=== PATIENT | male | born 1930 | race Caucasian/White ===

== ENCOUNTER 2017-09-25 01:54 | Inpatient (IN) | payer MEDICARE, BC, OTHER ==
[~2017-09-25] VITALS: Ht 180.3 cm; Wt 92.6 kg
[2017-09-25] MEDS ORDERED: NS 1000ML/KCL 20MEQ 1,000 ML IV ONE (11:34)
[2017-09-25] MEDS: DYNACIRC PO SCH (12:30)
[2017-09-25 12:33] LABS: BASOPHIL % 0.2 % (0.0-0.2); BILIRUBIN,URINE NEGATIVE (NEGATIVE); EOSINOPHIL # 0.1 10^3/uL (0.0-0.2); EOSINOPHIL % 1.8 % (0.0-5.0); HEMOGLOBIN 12.4 g/dL (13.9-16.3); LYMPHOCYTES # 0.8 10^3/uL (1.0-4.8); LYMPHOCYTES % 15.1 % (24.0-44.0); MEAN CELL HGB 32.9 pg (26-34); MEAN CELL HGB CONCENTRATION 33.5 g/dL (33-37); MEAN CORP VOLUME 98.1 fL (78-100); MEAN PLATELET VOLUME 9.7 fL (7.8-11.0); MONOCYTES # 0.8 10^3/uL (0.3-0.8); MONOCYTES % 14.9 % (5.0-12.0); NEUTROPHIL # 3.7 10^3/uL (1.8-7.7); NEUTROPHILS % 67.6 % (41.0-85.0); UROBILINOGEN,URINE NORMAL (NEGATIVE); WHITE BLOOD CELL 5.4 10^3/uL (4.5-11.0)
[2017-09-25 12:34] LABS: APPEARANCE,URINE CLEAR (CLEAR); UA COLOR STRAW (YELLOW)
--- NOTE | 2017-09-25 12:47 | PCM.EKG ---
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
[2017-09-25] MEDS: NS 1000ML 1,000 ML IV SCH ×2 (12:50→19:56)
[2017-09-25 13:01] VITALS: BP 150/82
[2017-09-25 13:03] LABS: CALCIUM 9.2 mg/dL (8.4-10.5); CARBON DIOXIDE 27.3 mmol/L (20.0-32)
--- NOTE | 2017-09-25 16:15 | DIREP ---
PROCEDURE:CHEST 1 VIEW COMPARISON:CR, CHEST 1 VIEW, 11/13/2010, 09:24 AM. INDICATIONS:SOB FINDINGS: LUNGS/PLEURA:Ill-defined opacity at the medial aspect of the right lung base is favored to likely reflect a prominent right pericardial fat pad. This is fairly similar to the previous study from 2010. No suspicious airspace consolidation, pleural effusion or pneumothorax is identified. VASCULATURE:Normal. Unremarkable pulmonary vasculature. CARDIAC:The heart is not enlarged. Stable left-sided cardiac pacing device. MEDIASTINUM:Mediastinal contours are within normal limits. BONES:Degenerative changes of the shoulders and spine. OTHER:Negative. CONCLUSION: 1. Essentially stable chest with apparent prominent right pericardial fat pad. No acute cardiopulmonary abnormality suspected. Dictated by: Kevin Caba M.D. On 09/25/2017 at 04:13 PM
[2017-09-25 17:38] VITALS: BP 160/88
--- NOTE | 2017-09-25 18:53 | DIREP ---
PROCEDURE:US KIDNEYS-BILAT COMPARISON:None. INDICATIONS:kidney injury TECHNIQUE:Ultrasound examination was performed of the kidneys and bladder. FINDINGS: RIGHT KIDNEY: The right kidney measures approximately 11.8 x 4.5 x 9.8 cm. There is apparent mild increased cortical echogenicity. The right renal cortex measures up to approximately 1.1 cm in thickness. There is a small cyst within the lower pole of the right kidney measuring up to approximately 2.2 cm. There is a larger cyst which directly abuts the lower pole of the right kidney and likely reflects an exophytic cyst. This is simple appearing and measures up to approximately 8.7 x 4.7 x 8.4 cm. LEFT KIDNEY: The left kidney measures approximately 11.8 x 5.3 x 6.1 cm. There is apparent mild increased cortical echogenicity. The left renal cortex measures up to approximately 1.4 cm. No hydronephrosis or suspicious contour deforming lesion is identified. There is an apparent small cyst within the mid to lower pole left kidney measuring up to approximately 2.1 cm. BLADDER:Grossly unremarkable. Bilateral ureteral jets are appreciated. CONCLUSION: 1. Bilateral renal cysts. No hydronephrosis or suspicious renal contour deforming lesion is identified. Increased cortical echogenicity may reflect underlying chronic medical renal disease. 2. Bilateral ureteral jets are visualized. Dictated by: RAFA Physician on 09/25/2017 at 04:18 PM
[2017-09-25 19:34] VITALS: BP 146/76
[2017-09-25] MEDS: CRESTOR PO SCH (20:03)
--- NOTE | 2017-09-25 20:03 | NUR ---
pt refused cholesterol medication, because he takes it in the mornings, and had already taken it.
[2017-09-26] VITALS (7 sets, daily range): BP systolic 144–181; BP diastolic 71–84
[2017-09-26] MEDS: NS 1000ML 1,000 ML IV SCH ×3 (03:28→20:45)
[2017-09-26 05:13] LABS: CALCIUM 8.3 mg/dL (8.4-10.5); CARBON DIOXIDE 24.6 mmol/L (20.0-32)
--- NOTE | 2017-09-26 06:55 | NUR ---
REPORT REPORT RECEIVED FROM PREVIOUS SHIFT AND ASSUMED CARE OF PT
[2017-09-26] MEDS: BYSTOLIC PO SCH (08:54)
[2017-09-26] MEDS: ASPIRIN EC PO SCH (08:54)
[2017-09-26] MEDS ORDERED: DEMADEX PO SCH (09:00)
[2017-09-26] MEDS ORDERED: HYDROCHLOROTHIAZIDE PO SCH (09:00)
[2017-09-26] MEDS ORDERED: COZAAR PO SCH (09:00)
[2017-09-26] MEDS ORDERED: KLOR-CON 10 PO SCH (09:00)
--- NOTE | 2017-09-26 10:22 | NUR ---
DR. ELEAZAR BUSH HERE TO SEE PT AT THIS TIME
--- NOTE | 2017-09-26 10:40 | NUR ---
DISCHARGE PLANNING CM VISITED WITH PATIENT AND REGARDING DISCHARGE PLAN AND NEEDS. PATIENT LIVES AT HOME WITH HIS . HE IS INDEPENDENT WITH ALL ADL'S AND REQUIRES NO DME AT THIS TIME ALTHOUGH HE DOES HAVE A WALKER AT HOME IF HE EVER NEEDS IT. HE IS NOT ON ANY OXYGEN AT HOME AND DENIES NEED FOR HOME HEALTH. DISCHARGE GOAL IS TO DISCHARGE HOME WITH HIS AND CONTINUE ROUTINE SELF CARE. CM DEPT WILL CONTINUE TO MONITOR DISCHARGE NEEDS.
[2017-09-26] MEDS: DYNACIRC PO SCH (12:30)
--- NOTE | 2017-09-26 14:19 | PCM.EKG ---
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
--- NOTE | 2017-09-26 18:33 | NUR ---
REPORT REPORT RECEIVED FROM JANI BOO ASSUMED CARE OF PT
[2017-09-26] MEDS: CRESTOR PO SCH (20:45)
--- NOTE | 2017-09-27 02:27 | NUR ---
STATUS PT LYING IN BED WITH EYES CLOSED, RESP EVEN AND NON LABORED. NO S/S OF DISTRESS NOTED. CALL LIGHT WITHIN REACH. BED LOCKED AND LOW POSITION. SIDE RAILS UP X2. WILL CONT TO MONITOR.
[2017-09-27 05:13] VITALS: BP 156/72
[2017-09-27] MEDS: NS 1000ML 1,000 ML IV SCH (05:33)
[2017-09-27 06:07] LABS: CALCIUM 8.4 mg/dL (8.4-10.5)
--- NOTE | 2017-09-27 06:45 | NUR ---
REPORT RECEIVED REPORT, ASSUMED CARE OF PT
[2017-09-27 07:19] VITALS: BP 160/87
[2017-09-27] MEDS: BYSTOLIC PO SCH (08:24)
[2017-09-27] MEDS: ASPIRIN EC PO SCH (08:24)
[2017-09-27] MEDS ORDERED: ASPI-655 PO (10:03)
[2017-09-27] MEDS ORDERED: NEBI5TAB2 PO (10:03)
[2017-09-27] MEDS ORDERED: ROSU10TA PO (10:03)
[2017-09-27] MEDS ORDERED: ISRA2.5C PO ×2 (10:03→10:19)
[2017-09-27] MEDS ORDERED: TORS20TA2 PO (10:19)
[2017-09-27] MEDS ORDERED: ROSU20TA PO (10:19)
[2017-09-27] MEDS ORDERED: ASPI-484 PO (10:19)
[2017-09-27] MEDS ORDERED: LOSA100T6 PO (10:19)
[2017-09-27] MEDS ORDERED: NEBI10TA3 PO (10:19)
[2017-09-27] MEDS ORDERED: POTA10CA PO (10:19)
[2017-09-27] MEDS ORDERED: HYDR12.53 PO (10:19)
[2017-09-27 10:36] VITALS: BP 160/87
--- NOTE | 2017-09-27 11:13 | NUR ---
DISCHARGE EDUCATED PT AND FAMILY MEMBER ON DISEASE PROCESS, NEW MEDICATIONS, FOLLOW UP APPOINTMENTS, DIET, AND MEDICATIONS TO STOP. PT VERBALIZED UNDERSTANDING. PT AMBULATED OFF UNIT ACCOMPANIED BY FAMILY MEMBER. NO S/S OF DISTRESS NOTED.
--- NOTE | 2017-09-27 19:56 | PNH ---
DATE: 09/26/2017 SUBJECTIVE: The patient is 87 years old. The patient is doing much better. His urine output has improved. OBJECTIVE: VITAL SIGNS: Stable, 97 temperature, pulse 60, respiration 18, 170/80 blood pressure . Intake, output shows he had a positive balance. He has been drinking a lot of fluid. He does not have a Gong catheter in. LABORATORY DATA: The creatinine was over 2, is now 1.69 with a BUN of 43. Uric acid is 8, it was 8.9 yesterday. Urine was unremarkable. Kidney size is normal. IMPRESSION: Acute kidney injury, hypertension, hypertensive heart disease, on multiple diuretics. PLAN: At this time, repeat renal profile in the morning and then decide further therapy. Tova Weems MD DR: CASTILLO/berta JOB# [id number]
--- NOTE | 2017-09-29 00:26 | DSH ---
DATE OF DISCHARGE: 09/27/2017 FINAL DIAGNOSES: Acute kidney injury, hypertension, hypertensive heart disease, chronic diastolic heart failure. Please refer to my history and physical to the point of my impression. HOSPITAL COURSE: The patient is a 87-year-old white male who has a known history of hypertension, hypertensive heart disease with chronic diastolic heart failure and has been on Lasix and hydrochlorothiazide and he for the first time noticed to have significant changes in renal function with a creatinine over 2, BUN was over 50 and creatinine was about 2.3 in the office and urine was unremarkable, cyst in the kidney, normal size kidney and this was felt to be related to prerenal azotemia, diuretics and he was admitted and started on IV fluids and on 09/27/2017 BUN was 27, creatinine 1.34 and a potassium was 3.6 and uric acid was 8.9 and came down to 8, very likely hydration should help and he was sent home on limited number of medicine, aspirin 81 mg once a day, isradipine 2.5 mg twice a day and Bystolic 20 mg once a day, Crestor 10 mg once a day, aspirin 81 mg once a day and losartan 50 mg daily and potassium 10 mEq once a day. I did stop his hydrochlorothiazide and torsemide and he will come back in the office on next Friday, which is 10/01/2017 for reconciliation of medications and/or recheck of his renal profile. Laxmichand MD Dank DR: CASTILLO/berta JOB# [id number]
== END 2017-09-27 11:15 | disposition home or self-care (01) | DRG 683 ==
LOC: MS 10:57
PROVIDERS: ADMIT Specialist; ATTEND Specialist
DX: N17.9 Acute kidney failure, unspecified (principal); I50.32 Chronic diastolic (congestive) heart failure; I13.0 Hypertensive heart and chronic kidney disease with heart failure and stage 1 through stage 4 chronic kidney disease, or unspecified chronic kidney disease; N28.1 Cyst of kidney, acquired; N18.3 Chronic kidney disease, stage 3 (moderate); E78.5 Hyperlipidemia, unspecified; Z79.82 Long term (current) use of aspirin; Z95.0 Presence of cardiac pacemaker; Z79.899 Other long term (current) drug therapy; Z82.49 Family history of ischemic heart disease and other diseases of the circulatory system; Z80.0 Family history of malignant neoplasm of digestive organs; Z90.49 Acquired absence of other specified parts of digestive tract
CPT/HCPCS: 36415; 71045; 76770; 80053; 81002; 83880; 84550; 85025; 87086; 93005; J7030

== ENCOUNTER → 2018-03-09 | Outpatient (CLI) | payer MEDICARE, BC, OTHER ==
[~2018-03-09] MED LIST: ASPI-484 PO; ASPI-655 PO; HYDR12.53 PO; ISRA2.5C PO; LOSA100T7 PO; NEBI10TA3 PO; NEBI5TAB2 PO; POTA10CA PO; ROSU10TA PO; ROSU20TA PO; TORS20TA2 PO
--- NOTE | 2018-03-09 15:34 | DIREP ---
PROCEDURE:US DUPLEX EXTREM VEINS UNILATER/LIMITED-RT COMPARISON:None. INDICATIONS:EDEMA RIGHT LEG, DVT, HTN, HHD TECHNIQUE:The right lower extremity was evaluated utilizing islas scale images with segmental compression, color Doppler, and spectral Doppler with respiratory variation and augmentation. FINDINGS: Common femoral vein:Patent Superficial femoral vein:Patent Popliteal vein:Patent Posterior tibial vein:Patent Peroneal vein:Patent Saphenofemoral junction:Patent Waveforms: Within normal limits. CONCLUSION:No evidence of deep venous thrombosis of the right lower extremity. Dictated by: Eusebio Blanchard M.D. on 03/09/2018 at 03:33 PM
== END | disposition home or self-care (01) ==
LOC: RAD 16:10
PROVIDERS: ATTEND Specialist
DX: R60.0 Localized edema (principal); I13.0 Hypertensive heart and chronic kidney disease with heart failure and stage 1 through stage 4 chronic kidney disease, or unspecified chronic kidney disease; N18.3 Chronic kidney disease, stage 3 (moderate); I50.32 Chronic diastolic (congestive) heart failure; E78.5 Hyperlipidemia, unspecified
CPT/HCPCS: 93971

== ENCOUNTER → 2018-10-05 | Outpatient (CLI) | payer MEDICARE, BC, OTHER ==
[~2018-10-05] MED LIST changes: +LOSA100T14 PO; -LOSA100T7 PO; -ROSU10TA PO; +ROSU10TA2 PO; -ROSU20TA PO; +ROSU20TA2 PO
[2018-10-05 16:25] LABS: HEMOGLOBIN 9.8 g/dL (13.9-16.3); MEAN CELL HGB 28.4 pg (26-34); MEAN CELL HGB CONCENTRATION 32.5 g/dL (33-37); MEAN CORP VOLUME 87.5 fL (78-100); MEAN PLATELET VOLUME 9.8 fL (7.8-11.0); WHITE BLOOD CELL 6.7 10^3/uL (4.5-11.0)
[2018-10-05 16:36] LABS: CALCIUM 8.9 mg/dL (8.4-10.5); CARBON DIOXIDE 25.6 mmol/L (20.0-32)
== END | disposition home or self-care (01) ==
LOC: LAB 15:46
PROVIDERS: ATTEND Specialist
DX: M79.81 Nontraumatic hematoma of soft tissue (principal); R60.0 Localized edema
CPT/HCPCS: 36415; 80053; 82550; 85027; 85379; 85651

== ENCOUNTER → 2018-10-06 | Outpatient (CLI) | payer MEDICARE, BC ==
--- NOTE | 2018-10-06 17:08 | DIREP ---
PROCEDURE:US DUPLEX EXTREM VEINS UNILATER/LIMITED-RT COMPARISON:[facility], DUPLEX EXTREM VEINS UNILATER/LIMITED-RT, 03/09/2018, 03:17 PM. INDICATIONS:DVT RIGHT LEG TECHNIQUE:The right lower extremity was evaluated utilizing islas scale images with segmental compression, color Doppler, and spectral Doppler with respiratory variation and augmentation. FINDINGS: Common femoral vein:Patent Superficial femoral vein:Patent Popliteal vein:Patent Posterior tibial vein:Patent Peroneal vein:Patent Greater saphenous vein:Patent Waveforms: Within normal limits. Other: A 2.0 x 3.1 x 1.9 cm collection of fluid is identified in the right distal thigh. Mild soft tissue edema seen at the level of the calf. CONCLUSION:No evidence of DVT involving the right lower extremity. Small fluid collection seen in the distal thigh that may be related the injury or possible hematoma. Soft tissue edema seen at the level of the calf. Dictated by: RAFA Physician on 10/06/2018 at 04:33 PM Read in [place] erickson almendarez
--- NOTE | 2018-10-07 08:15 | DIREP ---
PROCEDURE:CT LOWER EXTREMITY-RT W/O COMPARISON:None. INDICATIONS:LARGE HEMATOMA, RIGHT THIGH INNER ASPECT TECHNIQUE:Axial sections through the right thigh were performed with sagittal and coronal reconstructions from source images. No contrast was administered. FINDINGS: BONES:The imaged osseous structures appear intact. JOINTS:Minimal degenerative changes of the right knee. Mild superior patellar enthesopathy. SOFT TISSUES:No sizable suprapatellar joint effusion. Scattered atherosclerotic calcifications. Mild diffuse subcutaneous edema about the imaged right thigh. There is a more confluent somewhat lobular shaped density within the subcutaneous fat along the medial aspect of the imaged distal right thigh. This measures approximately 3.5 x 4.4 x 2.0 cm (cc, AP, TV) and would be consistent with the reported hematoma. CONCLUSION: 1. No acute osseous abnormality. 2. Confluent density within the superficial subcutaneous fat along the medial aspect of the distal right thigh, consistent with the reported hematoma. There is associated mild subcutaneous edema throughout the imaged right thigh. Please note that the presumed hematoma is likely clinically palpable given the superficial location. Suggest continued clinical follow-up to ensure resolution. Dictated by: Kevin Caba M.D. On 10/07/2018 at 08:09 AM
== END | disposition home or self-care (01) ==
LOC: RAD 15:56
PROVIDERS: ATTEND Specialist
DX: M17.11 Unilateral primary osteoarthritis, right knee (principal); M79.9 Soft tissue disorder, unspecified; E78.5 Hyperlipidemia, unspecified; Z79.899 Other long term (current) drug therapy
CPT/HCPCS: 73700; 93971

== ENCOUNTER → 2019-03-18 | Outpatient (CLI) | payer MEDICARE, BC ==
--- NOTE | 2019-03-18 16:02 | DIREP ---
PROCEDURE:CHEST 2 VIEWS COMPARISON:[facility], CR, XRAY CHEST SINGLE VW, 09/25/2017, 01:59 PM. INDICATIONS:CH, COUGH FINDINGS: LUNGS/PLEURA:No significant pulmonary parenchymal abnormalities. No effusions. VASCULATURE:Normal. Unremarkable pulmonary vasculature. CARDIAC: Left subclavian cardiac pacing device. MEDIASTINUM:Normal. No visible mass or adenopathy. BONES:Normal. No fracture or visible bony lesion. OTHER:Negative. CONCLUSION: 1. No acute cardiopulmonary abnormality. Dictated by: Abdias Alvarado Jr. on 03/18/2019 at 04:00 PM
== END | disposition home or self-care (01) ==
LOC: RAD 15:06
PROVIDERS: ATTEND Specialist
DX: R05 Cough (principal)
CPT/HCPCS: 71046

== ENCOUNTER → 2019-03-23 | Outpatient (CLI) | payer MEDICARE, BC | END | disposition home or self-care (01) | LOC: LAB 13:00 | PROVIDERS: ATTEND Specialist | DX: D50.9 Iron deficiency anemia, unspecified (principal) | CPT/HCPCS: 36415; 82728; 85045 ==

== ENCOUNTER → 2019-06-03 | Outpatient (CLI) | payer MEDICARE, BC ==
--- NOTE | 2019-06-03 18:01 | DIREP ---
PROCEDURE:CT HEAD OR BRAIN W/ + W/O CONTRAST COMPARISON:None. INDICATIONS:TREMORS, TIA TECHNIQUE:CT images were created with and without intravenous contrast. FINDINGS: VENTRICLES:The ventricles are normal in size and configuration. CEREBRUM:Mild generalized atrophy. No focal loss of islas-white matter junction. No abnormal region of enhancement. No intracranial hemorrhage. CEREBELLUM:Mild volume loss. BRAINSTEM:Negative. BASAL CISTERNS:Negative. HEMORRHAGE:No MASS LESION:No ACUTE INFARCT:No SKULL:Normal. SINUSES:Normal. OTHER:None CONCLUSION:Mild atrophy. No evidence of acute abnormality. No evidence of hemorrhage. Dictated by: Curry Manjarrez MD on 06/03/2019 at 05:57 PM
--- NOTE | 2019-06-04 04:41 | DIREP ---
PROCEDURE:US DOPPLER CAROTID BILATERAL COMPARISON:[facility], US, US DOPPLER CAROTID BILATERAL, 12/19/2016, 02:41 PM. INDICATIONS:TIA, TREMORS, HTN TECHNIQUE:Duplex Doppler ultrasound utilizing color flow, villegas scale, and spectral Doppler analysis techniques were performed to evaluate the cervical carotid arteries and vertebral flow. FINDINGS: PEAK SYSTOLIC FLOW VELOCITIES (cm/sec) RIGHT CCA:38 cm/s RIGHT ICA (Proximal):53 cm/s RIGHT ICA (Mid):36 cm/s RIGHT ICA (Distal):39 cm/s RIGHT ECA:45 cm/s RIGHT ICA/CCA:1.4 LEFT CCA:52 cm/s LEFT ICA (Proximal):43 cm/s LEFT ICA (Mid):52 cm/s LEFT ICA (Distal):52 cm/s LEFT ECA:57 cm/s LEFT ICA/CCA:1.0 RIGHT VERTEBRAL:Antegrade flow LEFT VERTEBRAL:Antegrade flow IMAGES:Intimal thickening and/or plaque formation. CONCLUSION: 1. The degree of stenosis in the right internal carotid artery is < 50%. 2. The degree of stenosis in the left internal carotid artery is < 50%. GUIDELINES: Consensus Panel Villegas-scale and Doppler US Criteria for Diagnosis of ICA Stenosis Radiology, Mar 2003; Davie et al. 229 (2): 340- 346 Degree of Stenosis (%) NormalWhen there is < 125 cm/s and no plaque or intimal thickening is visible < 50When there is < 125 cm/s and plaque or intimal thickening is visible 50 - 69When there is 125 - 230 cm/s and plaque is visible 70 but less than near occlusionWhen there is > 230 cm/s and visible plaque and luminal narrowing are seen Near occlusionWhen there is marked narrowed lumen at color Doppler US Total occlusionWhen there is no detectable patent lumen at grayscale US and no flow at spectral, power and color Doppler US COMMENT: Common carotid artery and external carotid artery stenosis * No well established Doppler criteria for grading stenosis. * Measuring stenosis on color coded images may underestimate the degree of stenosis Diagnostic pitfalls * Trickle flow near occlusion may be undetected * ICA stenosis may be underestimated due to poor cardiac function or tandem stenosis * Contralateral ICA stenosis may be overestimated due to crossover collateral flow * Moderate carotid stenosis may be underestimated due to normalization flow at bulb Dictated by: Jacob Mar M.D. on 06/04/2019 at 04:32 AM
== END | disposition home or self-care (01) ==
LOC: CT 15:07
PROVIDERS: ATTEND Specialist
DX: G31.89 Other specified degenerative diseases of nervous system (principal); G45.9 Transient cerebral ischemic attack, unspecified; I10 Essential (primary) hypertension; R25.1 Tremor, unspecified
CPT/HCPCS: 36415; 70470; 82565; 93880; Q9967

== ENCOUNTER 2019-11-01 15:50 | Emergency (ER) | payer MEDICARE, BC ==
--- NOTE | 2019-11-01 16:16 | ER.PDOC ---
General Chief Complaint: Requesting Medical Care Stated Complaint: AMS Time seen by MD: 16:06 Source: patient, EMS History of Present Illness Initial Comments Pt's called EMS for pt being unresponsive, EMS found pt awake but not talking/responding initially. By the time they arrived, pt was awake and alert. No reports of shaking/seizure activity. Now denies symptoms. Usually: orientedx3 Decreased Ability to Stand: weak (better now) Prior symptoms/Treatment: No Similar symptoms previous, No Recenly Seen Allergies: Coded Allergies: No Known Allergies (Unverified , 09/25/17) Home Meds Active Scripts Aspirin (ASPIRIN EC) 81 Mg Tablet.dr, 81 MG PO DAILY for 30 Days Prov:CRISS BUSH MD 09/27/17 Isradipine (ISRADIPINE) 2.5 Mg Capsule, 2.5 MG PO DAILY24 for 30 Days, CAPSULE Prov:CRISS BUSH MD 09/27/17 Reported Medications Calcium Polycarbophil (FIBERCON) 625 Mg Tablet, 625 MG PO DAILY24, TAB 11/01/19 Memantine Hcl (NAMENDA) 10 Mg Tablet, 10 MG PO DAILY24, TAB 11/01/19 Carbidopa/Levodopa (CARBIDOPA-LEVODOPA 25-100 TAB) 1 Each Tablet, 1 TAB PO TID for 30 Days, #90 TAB 0 Refills 11/01/19 Aspirin (ASPIR 81) 81 Mg Tablet.dr, 1 TAB PO DAILY, #30 TAB 5 Refills 09/27/17 Nebivolol Hcl (BYSTOLIC) 10 Mg Tablet, 2 TAB PO DAILY, #90 TAB 1 Refill 09/27/17 Isradipine (ISRADIPINE) 2.5 Mg Capsule, 2.5 MG PO DAILY24, CAPSULE 09/27/17 Rosuvastatin 20MG (CRESTOR 20MG) 20 Mg Tablet, 1 TAB PO EVERY OTHER DAY, #30 TAB 5 Refills 09/27/17 Losartan Potassium (LOSARTAN POTASSIUM) 100 Mg Tablet, 1 TAB PO DAILY, #30 TAB 5 Refills 09/27/17 Potassium Chloride (POTASSIUM CHLORIDE) 10 Meq Capsule.er, 1 CAP PO DAILY, #30 CAP 5 Refills 09/27/17 Discontinued Scripts Rosuvastatin 10MG (CRESTOR 10MG) 10 Mg Tablet, 10 MG PO HS for 30 Days, TABLET Prov:CRISS BUSH MD 09/27/17 Nebivolol Hcl (BYSTOLIC) 5 Mg Tablet, 20 MG PO DAILY for 30 Days, TABLET Prov:CRISS BUSH MD 09/27/17 Past Medical History Medical History: other (Parkinson's) Family History Significant Family History: no pertinent family hx Review of Systems Constitutional: denies chills, denies fever Eyes: no symptoms reported Ears, Nose, Mouth, Throat: no symptoms reported Respiratory: denies cough, denies shortness of breath Cardiovascular: see HPI; denies chest pain, denies edema, denies palpitations Gastrointestinal: no symptoms reported; denies abdominal pain, denies diarrhea, denies nausea, denies vomiting Genitourinary: no symptoms reported Musculoskeletal: no symptoms reported Psychiatric/Neurological: see HPI; denies headache Endocrine: no symptoms reported All Other Systems: Reviewed and Negative Physical Exam General Appearance: alert, no distress HEENT: no apparent trauma, EOM's intact, no nystagmus Neuro/Psych: oriented x3, other (slow speech) Cranial Nerves: nml as tested Peripheral Exam: other (no gross motor deficit) Neck: supple, non-tender Respiratory: no resp distress, breath sounds nml CVS: reg rate & rhythm, heart sounds nml Abdomen: non-tender, no organomegaly Skin: color nml, no rash Extremities: nml ROM, pedal edema (1+ b/l) Results/Orders Results/Orders Orders - SHERI HINKLE DO Ct Head Wo Contrast (11/01/19 15:52) Cbc With Auto Diff (11/01/19 15:52) Comprehensive Metabolic Panel (11/01/19 15:52) Creatine Kinase (11/01/19 15:52) Creatine Kinase Mb (11/01/19 15:52) PT (11/01/19 15:52) Partial Thromboplastin Time. (11/01/19 15:52) Xr Chest 1v (11/01/19 15:52) Urinalysis (11/01/19 15:52) Ekg-Routine (11/01/19 15:52) Troponin I (11/01/19 15:52) Lactic Acid(Ml) (11/01/19 15:52) Type And Screen (11/01/19 20:00) Vital Signs Date Time Temp Pulse Resp B/P (MAP) Pulse Ox O2 Delivery O2 Flow Rate FiO2 6/15/20 20:29 60 18 99 Room Air 11/01/19 19:30 99.0 60 17 99 Room Air 11/01/19 18:30 99.0 60 17 99 Room Air 11/01/19 17:45 94.4 70 17 99 11/01/19 17:45 99.0 71 17 Laboratory Tests Test 11/01/19 16:08 11/01/19 18:15 11/01/19 18:47 11/01/19 19:30 White Blood Count 6.9 10^3/uL (4.5-11.0) Red Blood Count 2.10 10^6/uL (4.50-5.90) L Hemoglobin 6.6 g/dL (13.9-16.3) L Hematocrit 21.2 % (37.0-53.0) L Mean Corpuscular Volume 101.0 fL (78-100) H Mean Corpuscular Hemoglobin 31.4 pg (26-34) Mean Corpuscular Hemoglobin Concent 31.1 g/dL (33-36.5) L Red Cell Distribution Width 21.4 % (11.5-14.5) H Platelet Count 126 10^3/uL (150-400) L Mean Platelet Volume 11.8 fL (7.8-11.0) H Neutrophils (%) (Auto) 82.0 % (41.0-85.0) Lymphocytes (%) (Auto) 7.8 % (24.0-44.0) L Monocytes (%) (Auto) 9.4 % (5.0-12.0) Neutrophils # (Auto) 5.7 10^3/uL (1.8-7.7) Lymphocytes # (Auto) 0.54 10^3/uL1 (1.0-4.8) L Monocytes # (Auto) 0.7 10^3/uL (0.3-0.8) Absolute Immature Granulocyte (auto 0.01 10^3 u/L (0-2) Absolute Eosinophils (auto) 0.0 10^3/uL (0.0-0.2) Immature Granulocytes % 0.10 % (0.00-0.50) Eosinophils % 0.4 % (0.0-5.0) Basophils % 0.3 % (0.0-0.2) H Basophils # 0.0 10^3/uL (0.0-0.1) Prothrombin Time 17.1 SEC (9.3-11.3) H Prothrombin Time INR (Non-Therap) 1.7 Activated Partial Thromboplast Time 45.9 SEC (24.67-30.72) Sodium Level 142 mmol/L (132-145) Potassium Level 5.5 mmol/L (3.6-5.2) H Chloride Level 108.0 mmol/L (96-109) Carbon Dioxide Level 23.9 mmol/L (20.0-32) Anion Gap 15.6 Blood Urea Nitrogen 56 mg/dL (7-18) H Creatinine 1.71 mg/dL (0.59-1.40) H Estimated GFR () 45.8 (>/=60) Est GFR (CKD-EPI)(Non-Afr Surinamese) 37.9 (>/=60) BUN/Creatinine Ratio 32.0 Glucose Level 94 mg/dL (70-110) Lactic Acid Level 2.6 mmol/L (0.5-1.9) *H Calcium Level 8.5 mg/dL (8.4-10.5) Total Bilirubin 0.3 mg/dL (0.2-1.0) Aspartate Amino Transferase (AST) 21 U/L (0-35) Alanine Aminotransferase (ALT) 22 U/L (12-78) Alkaline Phosphatase 127 U/L (50-136) Total Creatine Kinase 16 U/L (39-308) L Creatine Kinase MB 2.1 ng/mL (0.5-3.6) Troponin I < 0.02 ng/mL (0.00-0.05) Total Protein 6.8 g/dL (6.4-8.2) Albumin 3.0 g/dL (3.4-5.0) L Globulin 3.8 POC Stool Occult Blood POSITIVE (NEGATIVE) Lactic Acid Followup at 2 Hours 0.9 mmol/L (0.5-1.9) Urine Collection Type VOID Urine Color YELLOW (YELLOW) Urine Appearance CLEAR (CLEAR) Urine Bilirubin NEGATIVE MG/DL (NEGATIVE) Urine Ketones NEGATIVE (NEGATIVE) Urine Specific [place] 1.015 (1.005-1.035) Urine pH 5.0 (5.0-6.0) Urine Protein NEGATIVE (NEGATIVE) Urine Urobilinogen NEGATIVE (NEGATIVE) Urine Nitrate NEGATIVE (NEGATAIVE) Urine Leukocyte Esterase NEGATIVE (NEGATIVE) Urine Blood NEGATIVE (NEGATIVE) Urine Glucose NORMAL (NEGATIVE) Progress Progress I spoke with Hospitalist, reviewed findings and history. Due to anemia and Gi bleed being on Xarelto, she asked for pt to be transferred to [place] where GI is present. I asked family and they requested [facility] for transfer. Spoke with [facility], they accepted transfer, Dr. Mccullough accepting. Pt will need pacer interrogation and PRBC's if not able to be done prior to transfer. Departure Time of Disposition: 19:25 Disposition: 70 DISC/XFER TO [facility] Impression: Primary Impression: GI bleed Additional Impressions: Anemia Syncope Condition: Stable (guarded) Referrals: CRISS BUSH MD (PCP) PRIMARY CARE PROVIDER Duration or Time Spent with Pa: 45 Problem Qualifiers Primary Impression: GI bleed GI bleed type/associated pathology: unspecified gastrointestinal hemorrhage type Qualified Codes: K92.2 - Gastrointestinal hemorrhage, unspecified Additional Impressions: Anemia Anemia type: unspecified type Qualified Codes: D64.9 - Anemia, unspecified Syncope Syncope type: unspecified Qualified Codes: R55 - Syncope and collapse SHERI HINKLE DO Nov 01, 2019 16:16
--- NOTE | 2019-11-01 16:19 | PCM.EKG ---
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
[2019-11-01 16:24] LABS: BASOPHIL % 0.3 % (0.0-0.2); EOSINOPHIL % 0.4 % (0.0-5.0); LYMPHOCYTES # 0.54 10^3/uL1 (1.0-4.8); LYMPHOCYTES % 7.8 % (24.0-44.0); MEAN CORP HGB 31.4 pg (26-34); MONOCYTES # 0.7 10^3/uL (0.3-0.8); MONOCYTES % 9.4 % (5.0-12.0); NEUTROPHIL # 5.7 10^3/uL (1.8-7.7); RED CELL DISTRIBUTION WIDTH 21.4 % (11.5-14.5)
--- NOTE | 2019-11-01 16:36 | DIREP ---
PROCEDURE:CHEST 1 VIEW COMPARISON:[facility], CR, XRAY CHEST 2 VWS, 03/18/2019, 03:30 PM. INDICATIONS:confusion FINDINGS: LUNGS/PLEURA:No significant pulmonary parenchymal abnormalities. No effusions. VASCULATURE:Normal. Unremarkable pulmonary vasculature. CARDIAC:A left-sided pacemaker is again seen with the heart size normal. MEDIASTINUM:Normal. No visible mass or adenopathy. BONES:Degenerative changes are seen in the right shoulder and both acromioclavicular joints. OTHER:Negative. CONCLUSION:Left-sided pacemaker without acute cardiopulmonary disease. Dictated by: Franky Casas M.D. on 11/01/2019 at 04:34 PM
[2019-11-01 16:51] LABS: ALANINE AMINOTRANSFERASE(ML) 22 U/L (12-78); ALKALINE PHOSPHATASE 127 U/L (50-136); ASPARTATE AMINO TRANSFERASE 21 U/L (0-35); CALCIUM 8.5 mg/dL (8.4-10.5); CARBON DIOXIDE 23.9 mmol/L (20.0-32); GLUCOSE 94 mg/dL (70-110)
--- NOTE | 2019-11-01 16:55 | DIREP ---
PROCEDURE:CT HEAD OR BRAIN W/O CONTRAST COMPARISON:[facility], CT, CT HEAD BRAIN W&W/O, 06/03/2019, 04:12 PM. INDICATIONS:altered level of awareness TECHNIQUE:CT images were created without intravenous contrast. FINDINGS: VENTRICLES:The ventricles are normal in size and configuration for patient's age. 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 CEREBELLUM:Negative. BRAINSTEM:Negative. BASAL CISTERNS:Negative. HEMORRHAGE:No MASS LESION:No ACUTE INFARCT:No SKULL:Normal. SINUSES:Normal. 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 No hemorrhage or acute infarct is seen or significant interval change from prior study. Dictated by: Franky Casas M.D. on 11/01/2019 at 04:52 PM
--- NOTE | 2019-11-01 17:25 | NUR ---
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
[2019-11-01 17:45] VITALS: BP_SYST 101; BP_SYST 132; BP_DIAS 54; BP_DIAS 77
[2019-11-01 18:30] VITALS: BP 115/84
--- NOTE | 2019-11-01 19:18 | NUR ---
ALIE SHARPE FROM [employer] CALLED FOR UPDATE ON PT. PT BEING TRANSFERRED TO [facility].
[2019-11-01 19:30] VITALS: BP 147/74
[2019-11-01 19:48] LABS: APPEARANCE,URINE CLEAR (CLEAR); BILIRUBIN,URINE NEGATIVE (NEGATIVE); UA COLOR YELLOW (YELLOW); UROBILINOGEN,URINE NEGATIVE (NEGATIVE)
[2019-11-01] MEDS ORDERED: CARB1TAB22 PO (20:11)
[2019-11-01] MEDS ORDERED: MEMA10TA PO (20:12)
[2019-11-01] MEDS ORDERED: CALC625T PO (20:16)
[2019-11-01 20:29] VITALS: BP 147/74
--- NOTE | 2019-11-01 20:50 | NUR ---
[facility] CALLED FOR TRANSFER AT THIS TIME.
--- NOTE | 2019-11-01 21:22 | NUR ---
EMS HERE TO TAKE PT TO [facility] FOR TRANSFER. REPORT GIVEN TO BASHIR. RELINQUISH CARE OF PT AT THIS TIME.
--- NOTE | 2019-11-01 21:30 | NUR ---
REPORT CALLED AT THIS TIME. UNABLE TO REACH ER NURSE. WILL CALL BACK.
--- NOTE | 2019-11-01 21:36 | NUR ---
REPORT CALLED AND GIVEN TO HEATHER DUNLAP RN AT THIS TIME.
== END 2019-11-01 21:22 | disposition other institution (70) ==
LOC: EDBD 15:50 → ER 15:50
DX: K92.2 Gastrointestinal hemorrhage, unspecified (principal); D64.9 Anemia, unspecified; Z79.82 Long term (current) use of aspirin; Z79.899 Other long term (current) drug therapy
CPT/HCPCS: 36415; 70450; 71045; 80053; 81002; 82272; 82550; 82553; 83605; 84484; 85025; 85610; 85730; 86900; 93005; 99285

== ENCOUNTER → 2019-12-07 | Outpatient (CLI) | payer MEDICARE, BC ==
[~2019-12-07] MED LIST changes: -ASPI-484 PO; +ASPI-485 PO; +CALC625T PO; +CARB1TAB22 PO; +MEMA10TA PO
[2019-12-07 11:33] LABS: BASOPHIL % 0.2 % (0.0-0.2); EOSINOPHIL # 0.1 10^3/uL (0.0-0.2); EOSINOPHIL % 2.5 % (0.0-5.0); LYMPHOCYTES # 0.64 10^3/uL1 (1.0-4.8); LYMPHOCYTES % 14.5 % (24.0-44.0); MEAN CORP HGB 29.9 pg (26-34); MONOCYTES # 0.3 10^3/uL (0.3-0.8); MONOCYTES % 7.7 % (5.0-12.0); NEUTROPHIL # 3.3 10^3/uL (1.8-7.7); NEUTROPHILS % 74.6 % (41.0-85.0); RED CELL DISTRIBUTION WIDTH 18.3 % (11.5-14.5)
[2019-12-07 11:50] LABS: CARBON DIOXIDE 31.3 mmol/L (20.0-32)
== END | disposition home or self-care (01) ==
LOC: LAB 10:57
PROVIDERS: ATTEND Specialist
DX: E78.5 Hyperlipidemia, unspecified (principal)
CPT/HCPCS: 80053; 80061; 85025

== ENCOUNTER 2019-12-22 11:00 | Emergency (ER) | payer MEDICARE, BC ==
[~2019-12-22 11:00] MED LIST changes: -ASPI-655 PO; +ASPI-929 PO
--- NOTE | 2019-12-22 11:00 | NUR ---
EMS REPORT EMS REPORT RECEIVED CERTIFIED MEDICAL CODING SPECIALIST. PER EMS, CPR IN PROGRESS. PATIENT WAS DEFIBRILLATED 4 TIMES D/T VFIB SHOWING ON MONITOR. PATIENT HAD BEEN GIVEN 5 AMPS OF EPI AND 300MG OF AMIODORONE CERTIFIED MEDICAL CODING SPECIALIST. PATIENT INTUBATED. CODE BLUE ANNOUNCED BY PBX. ALL NEEDED STAFF AT BEDSIDE FOR PATIENT ARRIVAL.
[2019-12-22] MEDS ORDERED: NEXTERONE IV ONE (11:01)
[2019-12-22] MEDS ORDERED: EPINEPHRINE IV ONE (11:01)
[2019-12-22] MEDS ORDERED: SODIUM BICARBONATE IV ONE (11:01)
--- NOTE | 2019-12-22 11:03 | NUR ---
EPI CPR STOPPED. NO PULSE, CPR RESUMED. EPI 1 AMP IVP.
--- NOTE | 2019-12-22 11:06 | NUR ---
AMIODARONE CPR IN PROGRESS AMIODARONE 150MG IVP
--- NOTE | 2019-12-22 11:07 | NUR ---
ELEAZAR/ EPI DR BUSH IN WITH PATIENT. CPR REMAINS IN PROGRESS. EPI 1 AMP IVP GIVEN
--- NOTE | 2019-12-22 11:07 | NUR ---
VIB MONITOR SHOWING VFIB. PATIENT DEFIBRILLATED AT 200J. CPR CONTINUED
--- NOTE | 2019-12-22 11:11 | NUR ---
EPI PER ELEAZAR PATIENT EMD. EPI ONE AMP GIVE IVP
--- NOTE | 2019-12-22 11:12 | NUR ---
BICARB CPR REMAINS IN PROGRESS. BICARB ONE AMP GIVEN.
--- NOTE | 2019-12-22 11:14 | NUR ---
EKG EKG COMPLETED AND READ BY DR BUSH. PATIENT EMD, CODE CALLED BY DR BUSH
--- NOTE | 2019-12-22 11:14 | NUR ---
Time of code called by Dr. Weems.
--- NOTE | 2019-12-22 11:25 | NUR ---
FAMILY FAMILY ALLOWED TO VIEW PATIENT FROM OUTSIDE ROOM. PETROLEUM ENGINEER HERE WITH FAMILY.
--- NOTE | 2019-12-22 11:38 | ER.PDOC ---
General Chief Complaint: Requesting Medical Care Stated Complaint: UNRESPONSIVE TRAVEL OUT OF US: No Time seen by MD: 11:33 Source: EMS Exam Limitations: clinical condition History of Present Illness Initial Comments PATIENT BROUGHT IN , CPR IN PROGRESS, FOR 20 MIN BY PARAMEDICS Timing/Duration: 1/2 hour Severity: severe Modifying Factors: improves with other Allergies: Coded Allergies: No Known Allergies (Unverified , 09/25/17) Home Meds Active Scripts Aspirin (ASPIRIN EC) 81 Mg Tablet.dr, 81 MG PO DAILY for 30 Days Prov:CRISS BUSH MD 09/27/17 Isradipine (ISRADIPINE) 2.5 Mg Capsule, 2.5 MG PO DAILY24 for 30 Days, CAPSULE Prov:CRISS BUSH MD 09/27/17 Reported Medications Calcium Polycarbophil (FIBERCON) 625 Mg Tablet, 625 MG PO DAILY24, TAB 11/01/19 Memantine Hcl (NAMENDA) 10 Mg Tablet, 10 MG PO DAILY24, TAB 11/01/19 Carbidopa/Levodopa (CARBIDOPA-LEVODOPA 25-100 TAB) 1 Each Tablet, 1 TAB PO TID for 30 Days, #90 TAB 0 Refills 11/01/19 Aspirin (ASPIR 81) 81 Mg Tablet.dr, 1 TAB PO DAILY, #30 TAB 5 Refills 09/27/17 Nebivolol Hcl (BYSTOLIC) 10 Mg Tablet, 2 TAB PO DAILY, #90 TAB 1 Refill 09/27/17 Isradipine (ISRADIPINE) 2.5 Mg Capsule, 2.5 MG PO DAILY24, CAPSULE 09/27/17 Rosuvastatin 20MG (CRESTOR 20MG) 20 Mg Tablet, 1 TAB PO EVERY OTHER DAY, #30 TAB 5 Refills 09/27/17 Losartan Potassium (LOSARTAN POTASSIUM) 100 Mg Tablet, 1 TAB PO DAILY, #30 TAB 5 Refills 09/27/17 Potassium Chloride (POTASSIUM CHLORIDE) 10 Meq Capsule.er, 1 CAP PO DAILY, #30 CAP 5 Refills 09/27/17 Past Medical History Medical History: arrhythmia, cardiac problems, high cholesterol, hypertension, parkinson Surgical History: appendectomy, pacemaker/ICD Social History Drug Use: none Reviewed Nursing Reviewed: Vital Signs, Abn. Noted Review of Systems All Other Systems: Reviewed and Negative Physical Exam General Appearance: Other Neck: Non-Tender Respiratory: other CVS: other Gastrointestinal: Other Back: Other Extremities: Other Neurologic/Psychiatric: Other Skin: Other Lymphatic: Other Progress Progress CPR PERFORMED PER ACLS PROTOCOL, FOR 20 M, NO ROSC Departure Time of Disposition: 11:22 Disposition: 20 Impression: Primary Impression: Cardiopulmonary arrest Condition: Referrals: CRISS BUSH MD (PCP) PRIMARY CARE PROVIDER Duration or Time Spent with Pa: 20 M Critical Care Note Total Time (mins): 20 LUIGI DOMINGUEZ MD Dec 22, 2019 11:38
--- NOTE | 2019-12-22 11:45 | NUR ---
LIFE GIFT LIFE GIFT NOTIFED. PATIENT RULED OUT DUE TO PUI.
--- NOTE | 2019-12-22 12:00 | NUR ---
COVID COVID SWAB COLLECTED PER DR BUSH REQUEST.
--- NOTE | 2019-12-22 12:07 | NUR ---
BERNARDO CHANG WHATELY NOTIFIED OF OF PUI. WILL CALL WHEN PATIENT IS READY.
--- NOTE | 2019-12-22 12:45 | NUR ---
BAGGING MAINTENCE HERE TO BAG PATIENT.
--- NOTE | 2019-12-22 13:10 | NUR ---
SAMIA BOLAÑOS HERE FOR BODY.
--- NOTE | 2019-12-22 13:44 | PCM.EKG ---
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
--- NOTE | 2019-12-22 17:31 | DSH ---
DATE OF DISCHARGE: 12/22/2019 SUMMARY CHIEF COMPLAINT: Cardiac arrest. HISTORY OF PRESENT ILLNESS: The patient is an 89-year-old white male with underlying history of hypertension, hypertensive heart disease, chronic diastolic congestive heart failure and chronic leg edema, recently was in [facility] with multiple medical problems and I am not sure if the COVID test was done and he was brought into the Emergency Room, brought by EMS in cardiac arrest status with CPR being done. When he arrived in the Emergency Room, he was showing electromechanical dissociation and no pulse was palpable. He was not responsive and he had no spontaneous breathing. CPR was continued for another 10 minutes. A 12-lead EKG shows electromechanical dissociation with pacer spikes and no mechanical activity was noted. Vital signs were absent and he was pronounced at 11:25 a.m. on 12/22/2019 in the Emergency Room. Family was made aware. FINAL DIAGNOSES: Cardiopulmonary arrest, electromechanical dissociation. COVID test was sent from the hospital to be sure that he was COVID negative and this would be classified as ER visit level 3. Rlmichand MD Dank DR: CASTILLO/berta JOB# [id number]
== END 2019-12-22 11:14 | disposition expired ==
LOC: ER 11:00 → EDBD 11:00 → ER 11:14
DX: I46.9 Cardiac arrest, cause unspecified (principal); Z20.828 Contact with and (suspected) exposure to other viral communicable diseases; E78.00 Pure hypercholesterolemia, unspecified; I10 Essential (primary) hypertension; Z79.82 Long term (current) use of aspirin; Z79.899 Other long term (current) drug therapy; Z95.0 Presence of cardiac pacemaker
CPT/HCPCS: 87635; 92950; 93005; 99285; J0171; J3490; J0282